=== PATIENT | female | born 1960 | race Caucasian/White ===

== ENCOUNTER 2016-12-30 08:31 | Emergency (ER) | payer BC ==
[~2016-12-30] VITALS: Ht 170.2 cm; Wt 67.1 kg
--- NOTE | 2016-12-30 08:45 | NUR ---
pt in room awaiting mse.
[2016-12-30] MEDS ORDERED: KETOROLAC TROMETHAMINE 15 MG INJ IV ONE (09:15)
--- NOTE | 2016-12-30 09:24 | NUR ---
iv placed/labs drawn/toradol administered/saline lock placesd/cxr and ekg done. pt positioned for comfort.
[2016-12-30] MEDS ORDERED: KETOROLAC TROMETHAMINE 15 MG INJ ONE (09:26)
[2016-12-30 09:27] LABS: BASOPHILS % (AUTO) 0.2 % (0.0-2.0); EOSINOPHILS # (AUTO) 0.2 K/uL (0.0-0.7); EOSINOPHILS % (AUTO) 2.1 % (0.0-7.0); HEMATOCRIT 42.1 % (37-47); HEMOGLOBIN 14.1 G/DL (12.0-16.0); LYMPHOCYTES # (AUTO) 1.4 K/UL (0.8-4.8); LYMPHOCYTES % (AUTO) 11.9 % (20.5-51.5); MEAN CORPUSCULAR HEMOGLOBIN 28.8 UUG (27.0-31.0); MEAN CORPUSCULAR HGB CONC 34 g/dL (32.0-37.0); MEAN CORPUSCULAR VOLUME 86.1 FL (81.0-99.0); MONOCYTES # (AUTO) 0.6 K/UL (0.1-1.30); MONOCYTES % (AUTO) 5.3 % (0.0-11.0); NEUTROPHILS # (AUTO) 9.2 K/UL (1.8-8.9); NEUTROPHILS % (AUTO) 80.5 % (38.5-71.5); PLATELET COUNT (AUTO) 245 K/UL (150-450); RED BLOOD CELL COUNT(AUTO) 4.89 MIL/UL (4.2-5.4); WHITE BLOOD COUNT (AUTO) 11.4 K/UL (4.0-11.2)
[2016-12-30 09:31] LABS: *BILIRUBIN,URIN NEGATIVE (NEGATIVE); *BLOOD, URINE Trace-intact (NEGATIVE); *CLARITY,URINE CLEAR (CLEAR); *COLOR,URINE YELLOW (YELLOW); *KETONES,URINE NEGATIVE (NEGATIVE); *PROTEIN,URINE NEGATIVE (NEGATIVE); *UROBILINOGEN,URINE 0.2 E.U./dl (NORMAL); LEUKOCYTE ESTERASE ,URINE NEGATIVE (NEGATIVE); NITRITE, URINE NEGATIVE (NEGATIVE); UGLUCOSE NEGATIVE (NEGATIVE)
[2016-12-30 09:35] LABS: CREATININE 0.8 mg/dL (0.6-1.3); POTASSIUM 4.6 mmol/L (3.5-5.1)
[2016-12-30 09:44] LABS: BACTERIA,URINE FEW /HPF (NONE SEEN); SQUAMOUS EPITHELIAL CELL,UR FEW /HPF (NONE SEEN); WBC,URINE 0-3 /HPF (0-3)
[2016-12-30 09:50] LABS: BILIRUBIN,DIRECT 0.1 mg/dL (0.0-0.2); BILIRUBIN,TOTAL 0.3 mg/dL (0.2-1.0); TOTAL PROTEIN, SERUM 7.9 g/dL (6.4-8.2)
--- NOTE | 2016-12-30 11:15 | NUR ---
MSE COMPLETED, IV D/C'D WITH CATH INTACT. PT D/D HOME WITH COPIES OF ALL TSETS INCLUDINING CT/AMBROSIO/EKG/UA/LABS. PT GOT DRESSDED AND AMBULATED W/O DIFF/TOOK ALL BELONGINGS.
[2016-12-30 11:17] VITALS: BP 158/68
== END 2016-12-30 11:18 | disposition home or self-care (01) ==
LOC: ER 08:31
DX: K85.90 Acute pancreatitis without necrosis or infection, unspecified (principal)
CPT/HCPCS: 36415; 71010; 74176; 76705; 80048; 80076; 81001; 83605; 83690; 84484; 84703; 85025; 87040 ×2; 93005; 96374; 99285; A4663; J1885; 70030-TC

== ENCOUNTER 2019-10-07 16:41 | Inpatient (IN) | payer BC ==
[~2019-10-07] VITALS: Ht 170.2 cm; Wt 67.3 kg
--- NOTE | 2019-10-07 16:51 | NUR ---
Patient is AOx4, speaking in complete sentences, speech is clear. Patient is able to follow /comprehend directions. Gait is stable. No cardiovascular distress noted. Rate and rhythm are regular. No CP. No respiratory distress noted. Respirations even & unlabored with symmetrical chest rise. No adventitious sounds noted. Patient denies Fever/Chills. No recent travel. pancreatitis (resolved)/NKDA. -ETOH/-recreational drug use. currently denies pain, Full Active ROM In All Extremities; Strength 5+/5+, denies NVD, Patient is on bed. Bed is in lowest position. Siderails are up x 2. Call light within reach. I will continue to monitor accordingly.
--- NOTE | 2019-10-07 16:52 | NUR ---
PT ABLE TO FOLLOW COMMANDS, NO CHANGE IN SMILE, NO CHANGE IN VISION, DENIES HEADACHE ABLE TO MOVE ALL EXTREMITIES, ROM WITH 5/5 STRENGTH NO WEAKNESS AT THIS TIME. CURRENTLY DENIES PAIN
--- NOTE | 2019-10-07 17:00 | NUR ---
ERMD AT BEDSIDE FOR HX AND PHYSICAL
[2019-10-07 17:29] LABS: BASOPHILS # (AUTO) 0.1 K/uL (0.0-8.0); BASOPHILS % (AUTO) 1.4 % (0.0-2.0); EOSINOPHILS # (AUTO) 0.2 K/uL (0.0-0.7); EOSINOPHILS % (AUTO) 2.7 % (0.0-7.0); HEMATOCRIT 40.4 % (31.2-41.9); HEMOGLOBIN 13.4 g/dL (10.9-14.3); LYMPHOCYTES # (AUTO) 1.6 K/uL (20.0-40.0); LYMPHOCYTES % (AUTO) 24.1 % (20.5-51.5); MEAN CORPUSCULAR HGB CONC 33 g/dL (32.3-35.6); MEAN CORPUSCULAR VOLUME 90.3 fL (75.5-95.3); MONOCYTES # (AUTO) 0.6 K/uL (2.0-10.0); NEUTROPHILS % (AUTO) 61.8 % (38.5-71.5); PLATELET COUNT (AUTO) 226 K/uL (179-408); RED BLOOD CELL COUNT(AUTO) 4.47 MIL/uL (3.63-4.92); WHITE BLOOD COUNT (AUTO) 6.5 K/uL (3.8-11.8)
[2019-10-07 17:36] LABS: CREATININE 0.9 mg/dL (0.6-1.3); POTASSIUM 4.1 mmol/L (3.5-5.1)
--- NOTE | 2019-10-07 17:49 | NUR ---
PENDING INSURANCE CALL BACK DX:TIA REQUIRING TELE RM STABLE FOR TRANSFER PT AWARE
--- NOTE | 2019-10-07 17:50 | NUR ---
PT BACK FR CT ACCOMPANIED BY TECH VIA WHEELCHAIR RA NAD DENIES PAIN KEPT WARM DRY AND COMFORTABLE AMBULATORY
[2019-10-07 17:51] LABS: BILIRUBIN,DIRECT 0.1 mg/dL (0.0-0.2); BILIRUBIN,TOTAL 0.3 mg/dL (0.2-1.0); TOTAL PROTEIN, SERUM 7.6 g/dL (6.4-8.2)
[2019-10-07 18:11] LABS: THYROID STIMULATING HORMONE 0.771 mIU/mL (0.358-3.740)
[2019-10-07 18:20] LABS: MAGNESIUM 2.2 mg/dL (1.8-2.4)
--- NOTE | 2019-10-07 18:20 | NUR ---
PT PASSED SWALLOW EVAL ABLE TO TOLERATE 1CUP WATER
--- NOTE | 2019-10-07 18:24 | NUR ---
ERMD AT BEDSIDE FOR UPDATE WAITING FOR PT ON DECISION
[2019-10-07] MEDS ORDERED: ASPIRIN 325 MG TABLET PO ONE (18:30)
--- NOTE | 2019-10-07 18:36 | NUR ---
CALL BACK FROM [facility] ([place]) [phone], RECEIVING DR: DR. CASSIDY BECAUSE [facility] REQUIRES PT TO HAVE NEGATIVE COVID TEST ERMD AWARE AND STATES PT DOES NOT MEET CRITERIA FOR COVID TEST (NO SYMPTOMS) ALSO THE RESULTS TAKE 24HRS IF EVER TEST WILL BE DONE.
[2019-10-07] MEDS ORDERED: ASPIRIN 325 MG TABLET ONE (18:44)
--- NOTE | 2019-10-07 18:44 | NUR ---
CALL BACK FROM HATTIE CHIU: OK TO ADMIT TO TELE HERE AT [facility] ERMD AWARE, UPDATING PATIENT AT THIS TIME EPIC PAGED
--- NOTE | 2019-10-07 18:48 | NUR ---
PENDING CALL BACK FROM EVELYN ([facility])
--- NOTE | 2019-10-07 19:00 | NUR ---
CALL BACK FROM [facility] STATES PT CAN BE ADMITTED TO [place] AND THEY WILL DO COVID TEESTING THERE HAND OFF GIVEN TO CREDIT INTERVIEWER RN PENDING PT DECISION
[2019-10-07] MEDS ORDERED: IV NS 1000 ML 1,000 ML IV PRN (19:30)
[2019-10-07] MEDS ORDERED: HYDROCODONE/APAP 5-325MG TABLET PO PRN (19:30)
[2019-10-07] MEDS ORDERED: ONDANSETRON 4 MG/2 ML VIAL IV PRN (19:30)
[2019-10-07] MEDS ORDERED: Z GUARD REMEDY PASTE 57 GM TUBE TOP PRN (19:30)
[2019-10-07] MEDS ORDERED: ACETAMINOPHEN 325 MG TABLET PO PRN (19:30)
[2019-10-07] MEDS ORDERED: MAGNESIUM HYDROXIDE 30 ML LIQUID UDC PO PRN (19:30)
--- NOTE | 2019-10-07 19:33 | NUR ---
Called [facility] to repage [facility] NP.
--- NOTE | 2019-10-07 19:41 | NUR ---
Report given to Cristina CAVAZOS Tele.
--- NOTE | 2019-10-07 20:00 | NUR ---
RECEIVED PT FROM ER VIA WHEELCHAIR. UNDER THE CARE OF EVELYN MURRAY. DX:TIA. PT IN NO ACUTE DISTRESS. LONG-TERM ASSESSMENT DONE. ADMISSION PROCESS AND CARE PLAN INITIATED. SAFETY AND COMFORT PROVIDED. WILL CONTINUE TO MONITOR.
[2019-10-07] MEDS ORDERED: ATORVASTATIN 10 MG TABLET PO SCH (21:00)
[2019-10-07 21:24] VITALS: BP 139/65
[2019-10-07] MEDS: BLOOD SUGAR DIAGNOSTIC 1 EACH STRIP VI SCH (23:28)
[2019-10-08 00:41] VITALS: BP 119/80
[2019-10-08] MEDS: BLOOD SUGAR DIAGNOSTIC 1 EACH STRIP VI SCH ×2 (06:00→12:00)
[2019-10-08 06:17] LABS: BASOPHILS # (AUTO) 0.1 K/uL (0.0-8.0); EOSINOPHILS # (AUTO) 0.3 K/uL (0.0-0.7); EOSINOPHILS % (AUTO) 4.1 % (0.0-7.0); HEMATOCRIT 38.9 % (31.2-41.9); HEMOGLOBIN 12.9 g/dL (10.9-14.3); LYMPHOCYTES # (AUTO) 2.2 K/uL (20.0-40.0); LYMPHOCYTES % (AUTO) 28.6 % (20.5-51.5); MEAN CORPUSCULAR HEMOGLOBIN 30.1 uug (24.7-32.8); MEAN CORPUSCULAR HGB CONC 33 g/dL (32.3-35.6); MEAN CORPUSCULAR VOLUME 90.7 fL (75.5-95.3); MONOCYTES # (AUTO) 0.8 K/uL (2.0-10.0); MONOCYTES % (AUTO) 10.5 % (0.0-11.0); NEUTROPHILS # (AUTO) 4.2 K/uL (1.8-8.9); NEUTROPHILS % (AUTO) 55.8 % (38.5-71.5); PLATELET COUNT (AUTO) 210 K/uL (179-408); RED BLOOD CELL COUNT(AUTO) 4.29 MIL/uL (3.63-4.92); WHITE BLOOD COUNT (AUTO) 7.6 K/uL (3.8-11.8)
--- NOTE | 2019-10-08 06:21 | NUR ---
PT SLEPT INTERMITTENTLY. PT IN NO ACUTE RESPIRATORY DISTRESS. IV INTACT.PRESCRIBED MEDICATION GIVEN AND PT TOLERATED IT WELL.SAFETY AND COMFORT PROVIDED. WILL ENDORSE TO INCOMING NURSE FOR CONTINUITY OF CARE.
[2019-10-08 06:27] VITALS: BP 130/75
[2019-10-08 06:28] LABS: CREATININE 0.8 mg/dL (0.6-1.3); MAGNESIUM 2.1 mg/dL (1.8-2.4); PHOSPHOROUS 4.3 mg/dL (2.5-4.9); POTASSIUM 3.8 mmol/L (3.5-5.1)
--- NOTE | 2019-10-08 08:00 | NUR ---
Pt alert and oriented x 4. No weakness noted. Pt smile is symmetrical. Arms and Legs has no weakness noted. Call light is within reach. Tele SNR @ 70's.
--- NOTE | 2019-10-08 09:30 | NUR ---
Pt seen by Hospitalist Lacy SHIRLEY pt is ok to go home if cleared by neuro and cardio eval. RX written for patient for possible d/c today. Call light is within reach.
[2019-10-08 12:00] VITALS: BP 138/73
[2019-10-08] MEDS ORDERED: IV NORMAL SALINE 250 ML IV ONE ×2 (13:14→14:02)
[2019-10-08] MEDS ORDERED: SWABABLE VALVE TRANSFER SET EA MC ONE ×2 (13:14→14:02)
--- NOTE | 2019-10-08 14:00 | NUR ---
Dr boone ok pt do outpt echo and Dr ly castañeda on neuro. Per Hospitalist pt is ok to be dc home today.
[2019-10-08] MEDS ORDERED: IOHEXOL 350 100 ML INFUS..BTL ONE (14:02)
[2019-10-08] MEDS ORDERED: ASPI-605 PO (14:27)
[2019-10-08] MEDS ORDERED: ATOR10TA PO (14:27)
[2019-10-08] MEDS ORDERED: ASPIRIN 81 MG TAB.CHEW PO SCH (14:30)
--- NOTE | 2019-10-08 15:00 | NUR ---
Discharge instructions given to patient. Pt verbalized understanding. RX given to pt. IV d/c. Pt ambulatory for discharge. Instructed pt to call PMD and f/u with outpt echo. Pt is in no acute distress upon discharge. Pt to f/u with her PMD
[2019-10-08] MEDS ORDERED: ATOR40TA PO (15:55)
[2019-10-08] MEDS ORDERED: ATORVASTATIN 10 MG TABLET PO SCH (21:00)
[2019-10-08] MEDS ORDERED: ATORVASTATIN 40 MG TABLET PO SCH (21:00)
== END 2019-10-08 15:00 | disposition home or self-care (01) | DRG 69 ==
LOC: ER 16:42 → TELE3 19:59
PROVIDERS: ADMIT Nurse Practitioner Acute Care; ATTEND Nurse Practitioner Acute Care
DX: G45.9 Transient cerebral ischemic attack, unspecified (principal); E78.5 Hyperlipidemia, unspecified; R29.810 Facial weakness; R73.03 Prediabetes; R03.0 Elevated blood-pressure reading, without diagnosis of hypertension; R29.700 NIHSS score 0; R40.2412 Glasgow coma scale score 13-15, at arrival to emergency department
CPT/HCPCS: 36415; 70030-TC; 70450; 70496; 71045; 83735; 84100; 84443; 85025; 85651; 85730; 93005; G0378; J7030; J7050; Q9967

== ENCOUNTER 2025-03-24 01:25 | Emergency (ER) | payer BC ==
[~2025-03-24] VITALS: Ht 170.2 cm; Wt 68.5 kg
[~2025-03-24 01:25] MED LIST: ASPI-605 PO; ATOR40TA PO
[2025-03-24 01:28] VITALS: BP 158/84
[2025-03-24 01:56] LABS: PLATELET COUNT (AUTO) 239 K/uL (179-408); RED BLOOD CELL COUNT(AUTO) 4.30 MIL/uL (3.63-4.92); RED CELL DISTRIBUTION WIDTH 13.3 % (12.3-17.7); WHITE BLOOD COUNT (AUTO) 9.9 K/uL (3.8-11.8)
[2025-03-24 02:02] LABS: CREATININE 0.7 mg/dL (0.6-1.3); SODIUM SERUM 141 mmol/L (136-145); UREA NITROGEN, BLOOD 23 mg/dL (7-18)
[2025-03-24 02:08] LABS: ASPARTATE AMINOTRANSFERASE 18 U/L (15-37); TOTAL PROTEIN, SERUM 6.8 g/dL (6.4-8.2)
[2025-03-24 03:07] VITALS: BP 158/84; O2SAT 99
== END 2025-03-24 03:08 | disposition home or self-care (01) ==
LOC: ER 01:35
DX: S82.892A Other fracture of left lower leg, initial encounter for closed fracture (principal); R55 Syncope and collapse; R03.0 Elevated blood-pressure reading, without diagnosis of hypertension; E78.5 Hyperlipidemia, unspecified; I25.2 Old myocardial infarction; Z79.82 Long term (current) use of aspirin; Z79.899 Other long term (current) drug therapy; Z86.73 Personal history of transient ischemic attack (TIA), and cerebral infarction without residual deficits; Z87.19 Personal history of other diseases of the digestive system; X58.XXXA Exposure to other specified factors, initial encounter; Y93.89 Activity, other specified; Y92.89 Other specified places as the place of occurrence of the external cause; Y99.8 Other external cause status
CPT/HCPCS: 36415; 73600; 84484; 85025; A4663